=== PATIENT | male | born 1985 | race African-American/Black ===

== ENCOUNTER 2020-04-26 05:40 | Emergency (ER) | payer OTHER ==
[~2020-04-26] VITALS: Ht 177.8 cm; Wt 90.9 kg
[2020-04-26] MEDS ORDERED: DERMABOND TOPICAL SKIN ADHESIVE TOP ONE (07:30)
[2020-04-26] MEDS ORDERED: NS 1,000 ML IV ONE (07:45)
--- NOTE | 2020-04-26 07:55 | REP ---
INDICATION: Syncope/near-syncope COMPARISON: None. TECHNIQUE: Portable AP view of the chest FINDINGS: The mediastinum and cardiac silhouette are stable and within normal limits for portable technique. The lung cary are clear without acute consolidation, effusion, or pneumothorax. Skeletal structures are intact. IMPRESSION: No acute cardiopulmonary process appreciated. <Electronically signed by Juan Mann > 04/26/20 [id number]
--- NOTE | 2020-04-26 07:56 | REPVR ---
PROCEDURE INFORMATION: Exam: CT Head Without Contrast Exam date and time: 04/26/2020 7:25 AM Age: 35 years old Clinical indication: Injury or trauma; Fall; Blunt trauma (contusions or hematomas) TECHNIQUE: Imaging protocol: Computed tomography of the head without contrast. Radiation optimization: All CT scans at this facility use at least one of these dose optimization techniques: automated exposure control; mA and/or kV adjustment per patient size (includes targeted exams where dose is matched to clinical indication); or iterative reconstruction. COMPARISON: No relevant prior studies available. FINDINGS: Brain: There is a single focus density measuring 2 mm in the inferior interhemispheric falx on coronal image 11 and axial image 7. Cerebral ventricles: No ventriculomegaly. Bones/joints: Unremarkable. No acute fracture. Paranasal sinuses: Visualized sinuses are unremarkable. No fluid levels. Mastoid air cells: Visualized mastoid air cells are well aerated. Soft tissues: Unremarkable. IMPRESSION: 1. No CT evidence of acute intra-axial hemorrhage, mass effect or midline shift. 2. No definite evidence of extra-axial hemorrhage however a small focus of hyperdensity in the inferior interhemispheric falx could represent a focus of early calcification however tiny amount of blood cannot be completely excluded. Short-term follow-up in 8-12 hours is suggested. Electronically signed by: Román Marin On 04/26/2020 07:56:16 AM
[2020-04-26] MEDS ORDERED: ONDANSETRON 4MG/2ML VIAL As Ordered ONE (08:27)
[2020-04-26 08:30] LABS: BASO % 0.4 % (0.0-1.0); EOS % 0.6 % (0.0-3.0); HEMATOCRIT 45.8 % (42.0-52.0); HEMOGLOBIN 15.2 g/dl (13.5-17.5); LYMPH # 1.4 10^3/uL (1.5-5.0); LYMPH % 19.6 % (24.0-44.0); MEAN CORPUSCULAR HEMOGLOBIN 29.5 pg (27.0-33.0); MEAN CORPUSCULAR HGB CONC 33.2 g/dl (32.0-36.5); MEAN CORPUSCULAR VOLUME 88.9 fl (80.0-96.0); MONO # 0.5 10^3/uL (0.0-0.8); PLATELET COUNT, AUTOMATED 141 10^3/uL (150-450); RED BLOOD COUNT 5.15 10^6/uL (4.30-6.10); WHITE BLOOD COUNT 6.9 10^3/uL (4.0-10.0)
[2020-04-26] MEDS ORDERED: ONDANSETRON 4MG/2ML VIAL IV ONE (08:30)
[2020-04-26 08:40] LABS: INR 0.99; PROTHROMBIN TIME 13.3 SECONDS (12.5-14.3)
[2020-04-26 08:41] LABS: PARTIAL THROMBOPLASTIN TIME 23.9 SECONDS (24.2-38.5)
[2020-04-26 08:43] LABS: D-DIMER QUANT 457.42 ng/ml (<500)
[2020-04-26 09:03] LABS: BLOOD UREA NITROGEN 16 MG/DL (7-18); CALCIUM LEVEL 9.2 MG/DL (8.5-10.1); CARBON DIOXIDE LEVEL 29 MEQ/L (21-32); CHLORIDE LEVEL 105 MEQ/L (98-107); CK-MB VALUE MASS 8.5 NG/ML (<3.6); CPK CREATINE PHOSPHOKINASE 964 U/L (39-308); CREATININE FOR GFR 1.21 MG/DL (0.70-1.30); ETHYL ALCOHOL (ETHANOL) 0.003 % (0.000-0.010); FREE T4 1.22 NG/DL (0.76-1.46); GLOMERULAR FILTRATION RATE > 60.0 (>60); GLUCOSE, FASTING 86 MG/DL (70-100); MAGNESIUM LEVEL 2.1 MG/DL (1.8-2.4); MB/CK RELATIVE INDEX 0.88 (< OR =4); POTASSIUM SERUM 3.9 MEQ/L (3.5-5.1); SODIUM LEVEL 140 MEQ/L (136-145); TROPONIN I < 0.02 NG/ML (< 0.10)
[2020-04-26 09:04] LABS: AMPHETAMINES LEVEL URINE NEGATIVE (NEGATIVE); BARBITURATES URINE NEGATIVE (NEGATIVE); BENZODIAZEPINES URINE NEGATIVE (NEGATIVE); CANNABINOIDS URINE NEGATIVE (NEGATIVE); COCAINE METABOLITE URINE NEGATIVE (NEGATIVE); METHADONE URINE NEGATIVE (NEGATIVE); OPIATES URINE NEGATIVE (NEGATIVE); PHENCYCLIDINE URINE NEGATIVE (NEGATIVE)
[2020-04-26 09:30] VITALS: BP 128/66
--- NOTE | 2020-04-27 12:20 | ECGEPIP ---
[facility] - ED Test Date: 2020-04-26 Pat Name: BRITTNI BOWEN Department: Room: - Gender: Male [employer]: [facility] : 1985 Requested By: ANDREAS Amado Order Number: [id number] Reading MD: Kristal Bro Measurements Intervals [place] Rate: 63 P: 69 DC: 196 QRS: 40 QRSD: 97 T: 32 QT: 403 QTc: 414 Interpretive Statements SINUS RHYTHM EARLY REPOLARIZATION NO PRIOR Electronically Signed on 04-27-2020 12:20:12 EST by Kristal Bro
== END 2020-04-26 09:37 | disposition short-term general hospital (02) ==
LOC: M ED 05:40
DX: S06.9X0A Unspecified intracranial injury without loss of consciousness, initial encounter (principal); W18.39XA Other fall on same level, initial encounter; Y92.89 Other specified places as the place of occurrence of the external cause
CPT/HCPCS: 12011; 70450; 71045; 80048; 80307; 82550; 82553; 83735; 84439; 84443; 84484; 85025; 85379; 85610; 85730; 93005; 93041; 94760; 96361; 96374; 99285; G0480; J2405